=== PATIENT | female | born 1950 | race African-American/Black ===

== ENCOUNTER 2022-09-07 09:44 | Day surgery (SDC) | payer OTHER, BC ==
[2022-09-06 15:40] VITALS: BMI 32.8
[2022-09-07] MEDS ORDERED: PROPOFOL 80 ML ONE (09:56)
[2022-09-07 13:14] VITALS: BP 137/74; PULSE 66; RESP 17; TEMP 97
== END 2022-09-07 12:30 | disposition home or self-care (01) ==
LOC: FASU-ENDO 09:44
PROVIDERS: ATTEND Internal Medicine Gastroenterology
PROC: 0DB78ZX Excision of Stomach, Pylorus, Via Natural or Artificial Opening Endoscopic, Diagnostic (ICD-10-PCS; 2022-09-07)
PROC: 0DB48ZX Excision of Esophagogastric Junction, Via Natural or Artificial Opening Endoscopic, Diagnostic (ICD-10-PCS; principal; 2022-09-07 11:22)
DX: K29.50 Unspecified chronic gastritis without bleeding (principal); K21.00 Gastro-esophageal reflux disease with esophagitis, without bleeding; Z87.11 Personal history of peptic ulcer disease
CPT/HCPCS: 82962; 88305-TC; 88342-TC